=== PATIENT | male | born 1965 | race Caucasian/White ===

== ENCOUNTER 2017-09-24 18:43 | Emergency (ER) | payer MEDICAID ==
[~2017-09-24] VITALS: Ht 172.7 cm; Wt 76.0 kg
[~2017-09-24 18:43] MED LIST: CHLO25CA10 PO; METO25TA6 PO; OMEP20TA5 PO; TRAZ-143 PO
[2017-09-24] MEDS ORDERED: TETanus/Pertussis (Acell)/Diphther VAC/PF (Tdap-Adult) 0.5ml syringe IM ONE (19:50)
[2017-09-24] MEDS ORDERED: BUPIVAcaine/PF 2.5 mg/ml (0.25%) 30ml vial IJ ONE (19:50)
[2017-09-24] MEDS ORDERED: SULF1TAB49 PO (20:52)
[2017-09-24 21:14] VITALS: BP 125/75
== END 2017-09-24 21:20 | disposition home or self-care (01) ==
LOC: ER 18:45
DX: L02.31 Cutaneous abscess of buttock (principal); I10 Essential (primary) hypertension; K21.9 Gastro-esophageal reflux disease without esophagitis; F15.10 Other stimulant abuse, uncomplicated; Z98.890 Other specified postprocedural states; Z59.0 Homelessness; Z56.0 Unemployment, unspecified; Z88.8 Allergy status to other drugs, medicaments and biological substances
CPT/HCPCS: 10060; 90471; 90715; 99283; A6255; A6266; A6449; J3490

== ENCOUNTER 2017-09-27 19:20 | Emergency (ER) | payer MEDICAID ==
[~2017-09-27] VITALS: Ht 172.7 cm; Wt 74.0 kg
[~2017-09-27 19:20] MED LIST changes: +SULF1TAB49 PO
[2017-09-27] MEDS ORDERED: LIDOcaine 1% 30ml vial SQ STA (21:06)
[2017-09-27 21:52] VITALS: BP 127/76
== END 2017-09-27 21:53 | disposition home or self-care (01) ==
LOC: ER 19:21
DX: Z48.00 Encounter for change or removal of nonsurgical wound dressing (principal); I10 Essential (primary) hypertension; K21.9 Gastro-esophageal reflux disease without esophagitis; F15.10 Other stimulant abuse, uncomplicated; Z59.0 Homelessness; Z56.0 Unemployment, unspecified; Z88.6 Allergy status to analgesic agent; Z79.899 Other long term (current) drug therapy
CPT/HCPCS: 99283; A6266; A6449; J3490

== ENCOUNTER 2017-10-01 19:56 | Emergency (ER) | payer MEDICAID ==
[~2017-10-01] VITALS: Ht 172.7 cm; Wt 72.6 kg
[2017-10-01 20:17] VITALS: BP 117/78
== END 2017-10-01 20:33 | disposition home or self-care (01) ==
LOC: ER 19:57
DX: Z48.01 Encounter for change or removal of surgical wound dressing (principal); I10 Essential (primary) hypertension; K21.9 Gastro-esophageal reflux disease without esophagitis; F15.10 Other stimulant abuse, uncomplicated
CPT/HCPCS: 99281; A6449

== ENCOUNTER 2017-10-12 03:34 | Inpatient (IN) | payer MEDICAID ==
[~2017-10-12] VITALS: Ht 172.7 cm; Wt 77.0 kg
[~2017-10-12 03:34] MED LIST changes: -SULF1TAB49 PO
[2017-10-12] MEDS ORDERED: LORazepam 2 mg/ml vial IV ONE (03:40)
[2017-10-12] MEDS ORDERED: thiamine 100mg/ml 2ml inj. IV ONE (03:40)
[2017-10-12] MEDS ORDERED: normal saline 1000ML IV soln IVB ONE (03:40)
[2017-10-12 04:11] LABS: BASOPHILS % (AUTO) 0.8 % (0-1); EOSINOPHILS % (AUTO) 0 % (0-6); HEMATOCRIT 40.4 % (42.0-52.0); HEMOGLOBIN 13.2 g/dl (14.0-17.9); LYMPHOCYTES # (AUTO) 0.5 X10'3 (1.1-4.8); LYMPHOCYTES % (AUTO) 8.2 % (21-51); MEAN CORPUSCULAR HEMOGLOBIN 29.5 PG (27.0-31.0); MEAN CORPUSCULAR HGB CONC 32.6 % (33.0-36.5); MEAN CORPUSCULAR VOLUME 90.6 FL (78-98); MEAN PLATELET VOLUME 7.7 FL (7.4-10.4); MONOCYTES # (AUTO) 0.8 X10'3 (0-0.9); NEUTROPHILS # (AUTO) 4.6 X10'3 (1.8-7.7); PLATELET COUNT 240 X10'3 (140-440); RED BLOOD COUNT 4.46 X10'6 (4.70-6.10); RED CELL DISTRIBUTION WIDTH 19.1 % (11.5-14.5); WHITE BLOOD COUNT 5.9 X10'3 (4.5-11.0)
[2017-10-12 04:26] LABS: ALANINE AMINOTRANSFERASE 51 U/L (12-78); ALBUMIN 3.6 G/DL (3.4-5.0); ALBUMIN/GLOBULIN RATIO 0.9 (1.1-1.5); ALKALINE PHOSPHATASE 67 IU/L (46-116); ANION GAP 22 (8-16); ASPARTATE AMINO TRANSFERASE 29 U/L (10-37); BILIRUBIN,TOTAL 0.7 MG/DL (0.1-1.0); BLOOD UREA NITROGEN 17 MG/DL (7-18); BUN/CREATININE RATIO 12.8 (5.4-32.0); CALCIUM 8.9 MG/DL (8.5-10.1); CHLORIDE 101 MMOL/L (99-107); CREATININE 1.33 MG/DL (0.60-1.10); ETHANOL < 0.010 GM/DL (0.0-0.010); GLUCOSE 260 MG/DL (70-104); MAGNESIUM 1.7 MG/DL (1.5-2.4); POTASSIUM 3.2 MMOL/L (3.5-5.1); SODIUM 141 MMOL/L (135-145); TOTAL CARBON DIOXIDE 17.7 MMOL/L (24-32); TOTAL PROTEIN 7.6 G/DL (6.4-8.2); eGFR 57 ML/MIN
[2017-10-12 04:28] LABS: INR 1.1 INR; PARTIAL THROMBOPLASTIN TIME 21 SECONDS (22-32)
[2017-10-12 04:29] LABS: ACETAMINOPHEN < 2.0 UG/ML (10-30)
[2017-10-12 04:47] LABS: URINE AMPHETAMINE SCREEN NEGATIVE (Neg); URINE BARBITUATE SCREEN NEGATIVE (Neg); URINE BENZODIAZEPINES SCREEN POSITIVE (Neg); URINE CANNABINOID SCREEN NEGATIVE (Neg); URINE COCAINE SCREEN NEGATIVE (Neg); URINE METHADONE SCREEN NEGATIVE (Neg); URINE OPIATE SCREEN NEGATIVE (Neg); URINE PHENCYCLIDINE SCREEN NEGATIVE (Neg)
[2017-10-12] MEDS ORDERED: acetaminophen 325mg tablet PO PRN (05:45)
[2017-10-12] MEDS ORDERED: magnesium hydroxide 30ml (MOM) UD suspension PO PRN (05:45)
[2017-10-12] MEDS ORDERED: ondansetron/PF 4mg/2ml inj IV PRN (05:45)
[2017-10-12] MEDS ORDERED: LORazepam 2 mg/ml vial IV PRN (05:50)
[2017-10-12] MEDS: normal saline 1000ml 1,000 ML IV SCH ×2 (06:09→23:48)
[2017-10-12 06:17] LABS: HEMOGLOBIN A1C 5.9 % (4.5-6.2)
[2017-10-12] MEDS ORDERED: potassium Cl 20 mEq SR tablet PO PRN (07:05)
[2017-10-12] MEDS ORDERED: potassium Cl 40MEQ/NS 500ml 500 ML IV PRN ×2 (07:05)
[2017-10-12] MEDS: K and/or MAG REPLACEMENT MC SCH (08:00)
[2017-10-12] MEDS: metoprolol tartrate 25mg tablet PO SCH ×2 (08:06→20:08)
[2017-10-12] MEDS: pantoprazole 40mg Tablet.DR PO SCH (08:06)
[2017-10-12] MEDS: folic acid 1mg tablet PO SCH (08:06)
[2017-10-12] MEDS: gabapentin 400mg capsule PO SCH ×3 (08:06→23:48)
[2017-10-12] MEDS: thiamine 100mg tablet PO SCH (08:07)
[2017-10-12] MEDS: potassium Cl 20 mEq SR tablet PO PRN ×3 (08:07→16:22)
[2017-10-12 09:30] VITALS: BP 131/100
[2017-10-12 10:00] VITALS: BP 135/97
[2017-10-12] MEDS: LORazepam 2 mg/ml vial IV PRN (12:42)
[2017-10-12 14:00] VITALS: BP 125/83
[2017-10-12 18:00] VITALS: BP 129/84
[2017-10-12] MEDS: traZODone 50mg tablet PO SCH (20:08)
[2017-10-12 22:15] VITALS: BP 141/95
[2017-10-13 05:00] VITALS: BP 131/95
[2017-10-13 05:52] LABS: BASOPHILS % (AUTO) 0.3 % (0-1); EOSINOPHILS # (AUTO) 0.1 X10'3 (0-0.9); EOSINOPHILS % (AUTO) 0.8 % (0-6); HEMATOCRIT 37.5 % (42.0-52.0); HEMOGLOBIN 12.9 g/dl (14.0-17.9); LYMPHOCYTES # (AUTO) 1.3 X10'3 (1.1-4.8); LYMPHOCYTES % (AUTO) 20.5 % (21-51); MEAN CORPUSCULAR HEMOGLOBIN 31.7 PG (27.0-31.0); MEAN CORPUSCULAR HGB CONC 34.4 % (33.0-36.5); MEAN CORPUSCULAR VOLUME 92.1 FL (78-98); MEAN PLATELET VOLUME 7.8 FL (7.4-10.4); MONOCYTES # (AUTO) 0.8 X10'3 (0-0.9); MONOCYTES % (AUTO) 12.7 % (2-12); NEUTROPHILS # (AUTO) 4.3 X10'3 (1.8-7.7); NEUTROPHILS % (AUTO) 65.7 % (42-75); PLATELET COUNT 183 X10'3 (140-440); RED BLOOD COUNT 4.07 X10'6 (4.70-6.10); WHITE BLOOD COUNT 6.5 X10'3 (4.5-11.0)
[2017-10-13 06:11] LABS: ALANINE AMINOTRANSFERASE 43 U/L (12-78); ALBUMIN 3.2 G/DL (3.4-5.0); ALBUMIN/GLOBULIN RATIO 0.8 (1.1-1.5); ALKALINE PHOSPHATASE 64 IU/L (46-116); ANION GAP 10 (8-16); ASPARTATE AMINO TRANSFERASE 21 U/L (10-37); BILIRUBIN,TOTAL 0.7 MG/DL (0.1-1.0); BLOOD UREA NITROGEN 17 MG/DL (7-18); BUN/CREATININE RATIO 19.8 (5.4-32.0); CALCIUM 8.4 MG/DL (8.5-10.1); CHLORIDE 106 MMOL/L (99-107); CREATININE 0.86 MG/DL (0.60-1.10); GLUCOSE 101 MG/DL (70-104); POTASSIUM 3.6 MMOL/L (3.5-5.1); SODIUM 140 MMOL/L (135-145); TOTAL CARBON DIOXIDE 23.7 MMOL/L (24-32); TOTAL PROTEIN 7.1 G/DL (6.4-8.2); eGFR > 90 ML/MIN
[2017-10-13] MEDS: K and/or MAG REPLACEMENT MC SCH (07:21)
[2017-10-13] MEDS: folic acid 1mg tablet PO SCH (07:21)
[2017-10-13] MEDS: pantoprazole 40mg Tablet.DR PO SCH (07:21)
[2017-10-13] MEDS: metoprolol tartrate 25mg tablet PO SCH ×2 (07:21→19:39)
[2017-10-13] MEDS: gabapentin 400mg capsule PO SCH ×3 (07:22→23:39)
[2017-10-13] MEDS: LORazepam 2 mg/ml vial IV PRN ×4 (07:22→21:42)
[2017-10-13] MEDS: thiamine 100mg tablet PO SCH (07:22)
[2017-10-13] MEDS: mag hydrox/Alum hydrox/simeth 30ml oral suspension PO PRN (07:35)
[2017-10-13 10:00] VITALS: BP 127/90
[2017-10-13 18:00] VITALS: BP 128/84
[2017-10-13] MEDS: normal saline 1000ml 1,000 ML IV SCH (19:40)
[2017-10-13] MEDS: traZODone 50mg tablet PO SCH (21:42)
[2017-10-13 22:55] VITALS: BP 129/74
[2017-10-14 05:00] VITALS: BP 136/94
[2017-10-14 06:22] LABS: BASOPHILS % (AUTO) 0.3 % (0-1); EOSINOPHILS # (AUTO) 0.1 X10'3 (0-0.9); EOSINOPHILS % (AUTO) 1.2 % (0-6); HEMATOCRIT 37.2 % (42.0-52.0); LYMPHOCYTES # (AUTO) 1.5 X10'3 (1.1-4.8); LYMPHOCYTES % (AUTO) 23.1 % (21-51); MEAN CORPUSCULAR HEMOGLOBIN 31.9 PG (27.0-31.0); MEAN CORPUSCULAR HGB CONC 34.9 % (33.0-36.5); MEAN CORPUSCULAR VOLUME 91.5 FL (78-98); MEAN PLATELET VOLUME 7.9 FL (7.4-10.4); MONOCYTES # (AUTO) 0.8 X10'3 (0-0.9); MONOCYTES % (AUTO) 12.2 % (2-12); NEUTROPHILS # (AUTO) 4.2 X10'3 (1.8-7.7); NEUTROPHILS % (AUTO) 63.2 % (42-75); PLATELET COUNT 174 X10'3 (140-440); RED BLOOD COUNT 4.07 X10'6 (4.70-6.10); RED CELL DISTRIBUTION WIDTH 19.1 % (11.5-14.5); WHITE BLOOD COUNT 6.6 X10'3 (4.5-11.0)
[2017-10-14 06:59] LABS: ALANINE AMINOTRANSFERASE 41 U/L (12-78); ALBUMIN 3.2 G/DL (3.4-5.0); ALBUMIN/GLOBULIN RATIO 0.8 (1.1-1.5); ALKALINE PHOSPHATASE 62 IU/L (46-116); ANION GAP 10 (8-16); ASPARTATE AMINO TRANSFERASE 22 U/L (10-37); BILIRUBIN,TOTAL 0.5 MG/DL (0.1-1.0); BLOOD UREA NITROGEN 16 MG/DL (7-18); BUN/CREATININE RATIO 18.8 (5.4-32.0); CALCIUM 8.5 MG/DL (8.5-10.1); CHLORIDE 104 MMOL/L (99-107); CREATININE 0.85 MG/DL (0.60-1.10); GLUCOSE 96 MG/DL (70-104); POTASSIUM 3.5 MMOL/L (3.5-5.1); SODIUM 139 MMOL/L (135-145); TOTAL CARBON DIOXIDE 24.7 MMOL/L (24-32); eGFR > 90 ML/MIN
[2017-10-14] MEDS ORDERED: cyclobenzaprine 10mg tablet PO PRN (07:10)
[2017-10-14] MEDS ORDERED: dicyclomine 10 MG capsule PO PRN (07:10)
[2017-10-14] MEDS ORDERED: loperamide 2mg capsule PO PRN (07:10)
[2017-10-14] MEDS ORDERED: mag hydrox/Alum hydrox/simeth 30ml oral suspension PO PRN (07:10)
[2017-10-14] MEDS: K and/or MAG REPLACEMENT MC SCH (08:00)
[2017-10-14] MEDS: pantoprazole 40mg Tablet.DR PO SCH (08:17)
[2017-10-14] MEDS: gabapentin 400mg capsule PO SCH ×3 (08:18→23:48)
[2017-10-14] MEDS: thiamine 100mg tablet PO SCH (08:18)
[2017-10-14] MEDS: folic acid 1mg tablet PO SCH (08:18)
[2017-10-14] MEDS: metoprolol tartrate 25mg tablet PO SCH ×2 (08:18→19:29)
[2017-10-14] MEDS ORDERED: LORazepam 2 mg/ml vial IV PRN (09:30)
[2017-10-14] MEDS: LORazepam 1 MG tablet PO PRN ×5 (09:40→23:48)
[2017-10-14 10:00] VITALS: BP 108/72
[2017-10-14] MEDS: normal saline 1000ml 1,000 ML IV SCH (15:01)
[2017-10-14 18:00] VITALS: BP 141/94
[2017-10-14] MEDS: traZODone 50mg tablet PO SCH (19:29)
[2017-10-14 22:00] VITALS: BP 116/80
[2017-10-14] MEDS: mag hydrox/Alum hydrox/simeth 30ml oral suspension PO PRN (23:48)
[2017-10-15 06:01] LABS: BASOPHILS % (AUTO) 0.2 % (0-1); EOSINOPHILS # (AUTO) 0.1 X10'3 (0-0.9); EOSINOPHILS % (AUTO) 1.9 % (0-6); HEMATOCRIT 38.9 % (42.0-52.0); HEMOGLOBIN 13.4 g/dl (14.0-17.9); LYMPHOCYTES # (AUTO) 1.6 X10'3 (1.1-4.8); MEAN CORPUSCULAR HEMOGLOBIN 31.8 PG (27.0-31.0); MEAN CORPUSCULAR HGB CONC 34.4 % (33.0-36.5); MEAN CORPUSCULAR VOLUME 92.4 FL (78-98); MEAN PLATELET VOLUME 7.9 FL (7.4-10.4); MONOCYTES # (AUTO) 0.8 X10'3 (0-0.9); MONOCYTES % (AUTO) 10.3 % (2-12); NEUTROPHILS # (AUTO) 5.1 X10'3 (1.8-7.7); NEUTROPHILS % (AUTO) 66.6 % (42-75); PLATELET COUNT 194 X10'3 (140-440); RED BLOOD COUNT 4.21 X10'6 (4.70-6.10); RED CELL DISTRIBUTION WIDTH 19.3 % (11.5-14.5); WHITE BLOOD COUNT 7.7 X10'3 (4.5-11.0)
[2017-10-15 06:42] LABS: ALANINE AMINOTRANSFERASE 41 U/L (12-78); ALBUMIN 3.4 G/DL (3.4-5.0); ALBUMIN/GLOBULIN RATIO 0.9 (1.1-1.5); ALKALINE PHOSPHATASE 71 IU/L (46-116); ANION GAP 11 (8-16); ASPARTATE AMINO TRANSFERASE 19 U/L (10-37); BILIRUBIN,TOTAL 0.5 MG/DL (0.1-1.0); BLOOD UREA NITROGEN 14 MG/DL (7-18); BUN/CREATININE RATIO 15.9 (5.4-32.0); CALCIUM 8.4 MG/DL (8.5-10.1); CHLORIDE 103 MMOL/L (99-107); CREATININE 0.88 MG/DL (0.60-1.10); GLUCOSE 97 MG/DL (70-104); POTASSIUM 3.5 MMOL/L (3.5-5.1); SODIUM 140 MMOL/L (135-145); TOTAL CARBON DIOXIDE 25.8 MMOL/L (24-32); TOTAL PROTEIN 7.2 G/DL (6.4-8.2); eGFR > 90 ML/MIN
[2017-10-15] MEDS ORDERED: pantoprazole 40mg Tablet.DR PO SCH (07:30)
[2017-10-15] MEDS: thiamine 100mg tablet PO SCH (07:39)
[2017-10-15] MEDS: gabapentin 400mg capsule PO SCH (07:39)
[2017-10-15] MEDS: LORazepam 1 MG tablet PO PRN ×2 (07:40→10:46)
[2017-10-15] MEDS: metoprolol tartrate 25mg tablet PO SCH (07:40)
[2017-10-15] MEDS: pantoprazole 40mg Tablet.DR PO SCH (07:40)
[2017-10-15] MEDS: folic acid 1mg tablet PO SCH (07:40)
[2017-10-15] MEDS: K and/or MAG REPLACEMENT MC SCH (08:00)
[2017-10-15 08:40] VITALS: BP 141/92
[2017-10-15] MEDS ORDERED: ATI1T PO (09:59)
[2017-10-15] MEDS ORDERED: FOLI1TAB16 PO (09:59)
[2017-10-15] MEDS ORDERED: METO25TA6 PO (09:59)
[2017-10-15] MEDS ORDERED: THI100T PO (09:59)
== END 2017-10-15 11:13 | disposition home or self-care (01) | DRG 775 ==
LOC: ER 03:35 → ED HOLD 05:42 → ORTHO 4S 08:27
PROVIDERS: ADMIT Internal Medicine; ATTEND Family Medicine
DX: F10.230 Alcohol dependence with withdrawal, uncomplicated (principal); F10.231 Alcohol dependence with withdrawal delirium; R56.9 Unspecified convulsions; I10 Essential (primary) hypertension; K21.9 Gastro-esophageal reflux disease without esophagitis; D64.9 Anemia, unspecified; E86.0 Dehydration; F15.90 Other stimulant use, unspecified, uncomplicated; F41.9 Anxiety disorder, unspecified; Z79.899 Other long term (current) drug therapy; Z82.49 Family history of ischemic heart disease and other diseases of the circulatory system; Z87.11 Personal history of peptic ulcer disease; Z59.0 Homelessness; Z56.0 Unemployment, unspecified
CPT/HCPCS: 36415; 70450; 71045; 80053; 80305; 80320; 80329; 83036; 83735; 85025; 85610; 85730; 87070; 93005; 96374; 96375; 99285; J2060; J3411; J7030

== ENCOUNTER 2017-12-01 16:50 | Emergency (ER) | payer MEDICAID ==
[~2017-12-01] VITALS: Ht 172.7 cm; Wt 72.7 kg
[~2017-12-01 16:50] MED LIST changes: +ATI1T PO; -CHLO25CA10 PO; +FOLI1TAB16 PO; +THI100T PO
[2017-12-01] MEDS ORDERED: phenobarbital inj 260 MG in normal saline 100ml IV soln 99 ML IV STA (17:39)
[2017-12-01] MEDS ORDERED: magnesium oxide 400mg tablet PO ONE (17:40)
[2017-12-01] MEDS ORDERED: TETanus/Pertussis (Acell)/Diphther VAC/PF (Tdap-Adult) 0.5ml syringe IM ONE (17:40)
[2017-12-01] MEDS ORDERED: normal saline 1000ML IV soln IVB ONE (17:40)
[2017-12-01] MEDS ORDERED: thiamine 100mg tablet PO ONE (17:40)
[2017-12-01 18:08] LABS: BASOPHILS # (AUTO) 0.1 X10'3 (0-0.2); BASOPHILS % (AUTO) 0.5 % (0-1); EOSINOPHILS # (AUTO) 0.2 X10'3 (0-0.9); EOSINOPHILS % (AUTO) 1.6 % (0-6); HEMATOCRIT 40.7 % (42.0-52.0); HEMOGLOBIN 13.9 g/dl (14.0-17.9); LYMPHOCYTES % (AUTO) 9.4 % (21-51); MEAN CORPUSCULAR HEMOGLOBIN 31.6 PG (27.0-31.0); MEAN CORPUSCULAR HGB CONC 34.1 % (33.0-36.5); MEAN CORPUSCULAR VOLUME 92.8 FL (78-98); MEAN PLATELET VOLUME 7.6 FL (7.4-10.4); MONOCYTES # (AUTO) 1.3 X10'3 (0-0.9); NEUTROPHILS # (AUTO) 8.3 X10'3 (1.8-7.7); NEUTROPHILS % (AUTO) 76.5 % (42-75); PLATELET COUNT 180 X10'3 (140-440); RED BLOOD COUNT 4.38 X10'6 (4.70-6.10); RED CELL DISTRIBUTION WIDTH 18.7 % (11.5-14.5); WHITE BLOOD COUNT 10.9 X10'3 (4.5-11.0)
[2017-12-01 18:22] LABS: ALANINE AMINOTRANSFERASE 28 U/L (12-78); ALBUMIN 3.6 G/DL (3.4-5.0); ALBUMIN/GLOBULIN RATIO 0.8 (1.1-1.5); ALKALINE PHOSPHATASE 82 IU/L (46-116); ANION GAP 9 (8-16); ASPARTATE AMINO TRANSFERASE 20 U/L (10-37); BILIRUBIN,TOTAL 0.6 MG/DL (0.1-1.0); BLOOD UREA NITROGEN 11 MG/DL (7-18); BUN/CREATININE RATIO 13.9 (5.4-32.0); CALCIUM 9.1 MG/DL (8.5-10.1); CHLORIDE 99 MMOL/L (99-107); CREATININE 0.79 MG/DL (0.60-1.10); ETHANOL < 0.010 GM/DL (0.0-0.010); GLUCOSE 142 MG/DL (70-104); MAGNESIUM 1.5 MG/DL (1.5-2.4); POTASSIUM 3.5 MMOL/L (3.5-5.1); SODIUM 135 MMOL/L (135-145); TOTAL CARBON DIOXIDE 26.7 MMOL/L (24-32); TOTAL PROTEIN 8.1 G/DL (6.4-8.2); eGFR > 90 ML/MIN
[2017-12-01] MEDS ORDERED: phenobarbital inj 130 MG in normal saline 100ml IV soln 99 ML IV ONE (18:50)
[2017-12-01 20:12] VITALS: BP 151/103
== END 2017-12-01 21:00 | disposition home or self-care (01) ==
LOC: ER 16:50
DX: S01.81XA Laceration without foreign body of other part of head, initial encounter (principal); S81.012A Laceration without foreign body, left knee, initial encounter; S30.1XXA Contusion of abdominal wall, initial encounter; F10.230 Alcohol dependence with withdrawal, uncomplicated; I10 Essential (primary) hypertension; K21.9 Gastro-esophageal reflux disease without esophagitis; F17.200 Nicotine dependence, unspecified, uncomplicated; F15.10 Other stimulant abuse, uncomplicated; Z56.0 Unemployment, unspecified; Z59.0 Homelessness; Z79.899 Other long term (current) drug therapy; Y08.89XA Assault by other specified means, initial encounter; Y93.89 Activity, other specified; Y92.89 Other specified places as the place of occurrence of the external cause; Y99.8 Other external cause status; Y90.9 Presence of alcohol in blood, level not specified
CPT/HCPCS: 36415; 80053; 80320; 83735; 85025; 90471; 90715; 93005; 96365; 96366; 96368; 99285; J2560; J7030

== ENCOUNTER 2018-03-17 17:52 | Emergency (ER) | payer MEDICAID | END 2018-03-17 18:48 | disposition left against medical advice (07) | LOC: ER 17:53 | DX: R45.851 Suicidal ideations (principal); R44.3 Hallucinations, unspecified; Z53.21 Procedure and treatment not carried out due to patient leaving prior to being seen by health care provider ==

== ENCOUNTER 2019-04-04 06:56 | Emergency (ER) | payer MEDICAID ==
[~2019-04-04] VITALS: Ht 172.7 cm; Wt 70.0 kg
[~2019-04-04 06:56] MED LIST changes: -TRAZ-143 PO; +TRAZ-251 PO
[2019-04-04 06:59] VITALS: BP 146/88
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
[2019-04-04] MEDS ORDERED: TRAM50TA2 PO (08:49)
== END 2019-04-04 08:59 | disposition home or self-care (01) ==
LOC: ER 06:56
DX: S02.32XA Fracture of orbital floor, left side, initial encounter for closed fracture (principal); S60.221A Contusion of right hand, initial encounter; S20.211A Contusion of right front wall of thorax, initial encounter; S09.90XA Unspecified injury of head, initial encounter; I10 Essential (primary) hypertension; K21.9 Gastro-esophageal reflux disease without esophagitis; F41.9 Anxiety disorder, unspecified; F10.10 Alcohol abuse, uncomplicated; F15.90 Other stimulant use, unspecified, uncomplicated; Z98.890 Other specified postprocedural states; Z79.899 Other long term (current) drug therapy; Y04.2XXA Assault by strike against or bumped into by another person, initial encounter; Y93.89 Activity, other specified; Y92.89 Other specified places as the place of occurrence of the external cause; Y99.8 Other external cause status; Y90.9 Presence of alcohol in blood, level not specified
CPT/HCPCS: 70450; 70486; 71101; 73130; 99284

== ENCOUNTER 2019-04-10 07:17 | Emergency (ER) | payer MEDICAID ==
[~2019-04-10] VITALS: Ht 172.7 cm; Wt 73.0 kg
[~2019-04-10 07:17] MED LIST changes: +TRAM50TA2 PO
[2019-04-10 07:25] VITALS: BP 144/95
[2019-04-10] MEDS ORDERED: HYDR-4353 PO (07:56)
== END 2019-04-10 08:27 | disposition home or self-care (01) ==
LOC: ER 07:18
DX: S22.31XD Fracture of one rib, right side, subsequent encounter for fracture with routine healing (principal); S60.221D Contusion of right hand, subsequent encounter; S00.83XD Contusion of other part of head, subsequent encounter; H11.32 Conjunctival hemorrhage, left eye; I10 Essential (primary) hypertension; K21.9 Gastro-esophageal reflux disease without esophagitis; F41.9 Anxiety disorder, unspecified; F10.10 Alcohol abuse, uncomplicated; F15.90 Other stimulant use, unspecified, uncomplicated; Z86.69 Personal history of other diseases of the nervous system and sense organs; Z90.89 Acquired absence of other organs; Z56.0 Unemployment, unspecified; Z59.0 Homelessness; Z79.899 Other long term (current) drug therapy; Y04.8XXD Assault by other bodily force, subsequent encounter; Y90.9 Presence of alcohol in blood, level not specified
CPT/HCPCS: 99283

== ENCOUNTER 2019-05-14 20:38 | Emergency (ER) | payer MEDICAID ==
[~2019-05-14] VITALS: Ht 172.7 cm; Wt 61.0 kg
[~2019-05-14 20:38] MED LIST changes: -TRAM50TA2 PO
[2019-05-14 20:41] VITALS: BP 169/95
== END 2019-05-14 22:48 | disposition left against medical advice (07) ==
LOC: ER 20:38
DX: M25.562 Pain in left knee (principal); K21.9 Gastro-esophageal reflux disease without esophagitis; F10.10 Alcohol abuse, uncomplicated; Z86.69 Personal history of other diseases of the nervous system and sense organs; Z98.890 Other specified postprocedural states; Z53.21 Procedure and treatment not carried out due to patient leaving prior to being seen by health care provider; Y90.9 Presence of alcohol in blood, level not specified

== ENCOUNTER 2019-07-30 06:45 | Emergency (ER) | payer MEDICAID ==
[~2019-07-30] VITALS: Ht 172.7 cm; Wt 70.6 kg
[2019-07-30 06:45] VITALS: BP 132/90
[2019-07-30] MEDS ORDERED: ACET-2006 PO (07:51)
== END 2019-07-30 08:00 | disposition home or self-care (01) ==
LOC: ER 06:45
DX: M25.462 Effusion, left knee (principal); M17.12 Unilateral primary osteoarthritis, left knee; I10 Essential (primary) hypertension; K21.9 Gastro-esophageal reflux disease without esophagitis; F41.9 Anxiety disorder, unspecified; F10.10 Alcohol abuse, uncomplicated; F15.90 Other stimulant use, unspecified, uncomplicated; Z98.890 Other specified postprocedural states; Z90.89 Acquired absence of other organs; Z59.0 Homelessness; Z56.0 Unemployment, unspecified; Z79.899 Other long term (current) drug therapy; Y90.9 Presence of alcohol in blood, level not specified
CPT/HCPCS: 73564; 99283

== ENCOUNTER 2019-08-17 21:46 | Emergency (ER) | payer MEDICAID ==
[~2019-08-17] VITALS: Ht 172.7 cm; Wt 75.0 kg
[~2019-08-17 21:46] MED LIST changes: +ACET-2006 PO
[2019-08-17 21:59] VITALS: BP 146/88
[2019-08-17] MEDS ORDERED: PENI500T2 PO (23:19)
== END 2019-08-17 23:37 | disposition home or self-care (01) ==
LOC: ER 21:48
DX: J02.0 Streptococcal pharyngitis (principal); R05 Cough; I10 Essential (primary) hypertension; K21.9 Gastro-esophageal reflux disease without esophagitis; M19.90 Unspecified osteoarthritis, unspecified site; F41.9 Anxiety disorder, unspecified; F15.90 Other stimulant use, unspecified, uncomplicated; Z79.899 Other long term (current) drug therapy; Z79.2 Long term (current) use of antibiotics; Z87.11 Personal history of peptic ulcer disease; Z90.89 Acquired absence of other organs; Z98.890 Other specified postprocedural states; Z56.0 Unemployment, unspecified; Z59.0 Homelessness
CPT/HCPCS: 87880; 99283

== ENCOUNTER 2019-12-25 05:08 | Day surgery (SDC) | payer MEDICAID ==
[2019-12-25] VITALS (11 sets, daily range): BP systolic 91–111; BP diastolic 58–78
[~2019-12-25] VITALS: Ht 172.7 cm; Wt 74.5 kg
[2019-12-25] MEDS ORDERED: normal saline 1,000 ML IV SCH (05:45)
[2019-12-25] MEDS ORDERED: diphenhydrAMINE 25mg capsule PO PRN (05:45)
[2019-12-25] MEDS ORDERED: nitroGLYCERIN 0.4mg SUBLingual tab SL PRN ×2 (05:45→10:00)
[2019-12-25] MEDS ORDERED: LORazepam 0.5 MG tablet PO PRN (05:45)
[2019-12-25] MEDS ORDERED: GABA-530 PO (05:56)
[2019-12-25] MEDS ORDERED: METO25TA6 PO (05:59)
[2019-12-25] MEDS ORDERED: TRAZ150T78 PO (05:59)
[2019-12-25] MEDS ORDERED: ACET-2144 PO (05:59)
[2019-12-25 06:02] LABS: BASOPHILS # (AUTO) 0.1 X10'3 (0-0.2); BASOPHILS % (AUTO) 0.8 % (0-1); EOSINOPHILS # (AUTO) 0.1 X10'3 (0-0.9); EOSINOPHILS % (AUTO) 0.9 % (0-6); HEMOGLOBIN 15.4 g/dl (14.0-17.9); LYMPHOCYTES # (AUTO) 1.3 X10'3 (1.1-4.8); MEAN CORPUSCULAR HEMOGLOBIN 34.4 PG (27.0-31.0); MEAN CORPUSCULAR HGB CONC 33.6 g/dL (33.0-36.5); MEAN CORPUSCULAR VOLUME 102.6 FL (78-98); MEAN PLATELET VOLUME 7.9 FL (7.4-10.4); MONOCYTES # (AUTO) 0.5 X10'3 (0-0.9); MONOCYTES % (AUTO) 7.7 % (2-12); NEUTROPHILS # (AUTO) 4.4 X10'3 (1.8-7.7); NEUTROPHILS % (AUTO) 69.6 % (42-75); PLATELET COUNT 244 X10'3 (140-440); RED BLOOD COUNT 4.48 X10'6 (4.70-6.10); RED CELL DISTRIBUTION WIDTH 12.6 % (11.5-14.5); WHITE BLOOD COUNT 6.3 X10'3 (4.5-11.0)
[2019-12-25 06:12] LABS: ALBUMIN 3.9 G/DL (3.4-5.0); ANION GAP 4 (8-16); BLOOD UREA NITROGEN 21 MG/DL (7-18); BUN/CREATININE RATIO 21.4 (5.4-32.0); CHLORIDE 106 MMOL/L (99-107); CREATININE 0.98 MG/DL (0.60-1.10); GLUCOSE 100 MG/DL (70-104); SODIUM 139 MMOL/L (135-145); eGFR 80 ML/MIN
[2019-12-25 06:14] LABS: PARTIAL THROMBOPLASTIN TIME 29 SECONDS (22-32)
[2019-12-25] MEDS ORDERED: LIDOcaine 1% (10mg/ml)w/preservative injection 20ml MDV ONE (08:37)
[2019-12-25] MEDS ORDERED: iohexol 350MG/ML 100ml bottle IV ONE (08:37)
[2019-12-25] MEDS ORDERED: iohexol 350 MG/ML 50ML vial IV ONE (08:37)
[2019-12-25] MEDS ORDERED: midazolam 2 mg/2 ml injection ONE (09:02)
[2019-12-25] MEDS ORDERED: fentaNYL/PF 50MCG/1 ML 2ML syringe ONE (09:03)
[2019-12-25] MEDS ORDERED: ondansetron/PF 4mg/2ml inj IV PRN (10:00)
[2019-12-25] MEDS ORDERED: HYDROcodone/acetaminophen 10/325mg tab PO PRN (10:00)
[2019-12-25] MEDS ORDERED: OXAZEpam 15mg capsule PO PRN (10:00)
[2019-12-25] MEDS ORDERED: proCHLORperazine 10 MG/2 ml inj IV PRN (10:00)
[2019-12-25] MEDS ORDERED: HYDROcodone/acetaminophen 5mg/325mg tablet PO PRN (10:00)
== END 2019-12-25 14:55 | disposition home or self-care (01) ==
LOC: U 05:08 → MED 3N 05:08 → U 14:55
PROVIDERS: ATTEND Internal Medicine Cardiovascular Disease
DX: R94.39 Abnormal result of other cardiovascular function study (principal); I10 Essential (primary) hypertension; E78.5 Hyperlipidemia, unspecified; G89.4 Chronic pain syndrome; J44.9 Chronic obstructive pulmonary disease, unspecified; F17.290 Nicotine dependence, other tobacco product, uncomplicated; F19.11 Other psychoactive substance abuse, in remission; F10.11 Alcohol abuse, in remission; Z79.01 Long term (current) use of anticoagulants; Z79.899 Other long term (current) drug therapy
CPT/HCPCS: 36415; 71046; 80048; 85025; 85610; 85730; 93005; 93458; 99152; 99153; C1769; J1644; J2001; J2250; J3010; J7030; Q0163; Q9967; A4620; C1760

== ENCOUNTER 2021-05-23 09:16 | Emergency (ER) | payer MEDICAID ==
[~2021-05-23] VITALS: Ht 172.7 cm; Wt 72.2 kg
[~2021-05-23 09:16] MED LIST changes: -ACET-2006 PO; +ACET-3209 PO; -ATI1T PO; -FOLI1TAB16 PO; +GABA-530 PO; +LOP25T PO; -METO25TA6 PO; -THI100T PO; -TRAZ-251 PO; +TRAZ150T78 PO
[2021-05-23 09:44] VITALS: BP 121/84
== END 2021-05-23 19:20 | disposition left against medical advice (07) ==
LOC: ER 09:17
DX: M79.671 Pain in right foot (principal); Z53.21 Procedure and treatment not carried out due to patient leaving prior to being seen by health care provider

== ENCOUNTER 2021-07-12 13:38 | Emergency (ER) | payer MEDICAID ==
[~2021-07-12] VITALS: Ht 172.7 cm; Wt 72.7 kg
[2021-07-12 15:41] VITALS: BP 140/100
[2021-07-12] MEDS ORDERED: bacitracin 15gm ointment TP ONE (15:50)
[2021-07-12] MEDS ORDERED: LIDOcaine 1% w/epiNEPHrine 1:200,000 30ml vial IJ ONE (15:50)
[2021-07-12] MEDS ORDERED: CEPH250T PO (15:53)
[2021-07-12] MEDS ORDERED: SULF1TAB45 PO (15:53)
== END 2021-07-12 16:37 | disposition home or self-care (01) ==
LOC: ER 13:39
DX: L03.012 Cellulitis of left finger (principal); G40.909 Epilepsy, unspecified, not intractable, without status epilepticus; I10 Essential (primary) hypertension; K21.9 Gastro-esophageal reflux disease without esophagitis; M19.90 Unspecified osteoarthritis, unspecified site; Z87.01 Personal history of pneumonia (recurrent); F15.90 Other stimulant use, unspecified, uncomplicated; Z72.89 Other problems related to lifestyle; Z56.0 Unemployment, unspecified; Z59.00 Homelessness unspecified; Z79.2 Long term (current) use of antibiotics; Z79.899 Other long term (current) drug therapy
CPT/HCPCS: 10060; 99283

== ENCOUNTER 2021-10-13 20:12 | Emergency (ER) | payer MEDICAID ==
[~2021-10-13] VITALS: Ht 172.7 cm; Wt 72.7 kg
[2021-10-13 20:25] VITALS: BP 103/76
--- NOTE | 2021-10-13 20:37 | NUR ---
consulted oc peralta regarding ordering knee xray due to pt ambulating well and having good range of motion. per kathryn, xray not needed at this time and provider to evaluate pt first before diagnostics.
[2021-10-13] MEDS ORDERED: ketorolac trometh inj. 60 MG/2 ML VIAL IM ONE (23:05)
== END 2021-10-13 23:49 | disposition home or self-care (01) ==
LOC: ER 20:13
DX: M25.562 Pain in left knee (principal); R10.9 Unspecified abdominal pain; I10 Essential (primary) hypertension; K21.9 Gastro-esophageal reflux disease without esophagitis; M19.90 Unspecified osteoarthritis, unspecified site; F15.90 Other stimulant use, unspecified, uncomplicated; Z87.11 Personal history of peptic ulcer disease; Z86.69 Personal history of other diseases of the nervous system and sense organs; Z90.89 Acquired absence of other organs; Z98.890 Other specified postprocedural states; Z72.89 Other problems related to lifestyle; Z59.00 Homelessness unspecified; Z56.0 Unemployment, unspecified; Z79.899 Other long term (current) drug therapy
CPT/HCPCS: 73564; 96372; 99283; J1885